=== PATIENT | female | born 1955 | race Caucasian/White ===

== ENCOUNTER 2016-05-10 17:24 | Inpatient (IN) | payer BC ==
--- NOTE | ~2016-05-10 | DS ---
Discharge Summary [facility] [address] [place]. [address] NAME: MIGUELINA GREENFIELD : 57 STATUS : DIS IN PAT#: [id number] AGE: 60 ADM/REG DATE : 05/10/16 MR#: [id number] REPORT SERV DATE: 05/21/16 DICTATED BY: GEGE GUZMAN DATE: 05/20/16 REPORT STATUS : Draft TRANSCRIBED BY: MARAL DATE: 05/20/16 Data Collection from hospitalization DISCHARGE DIAGNOSES: 1. Lbt-VD-ergqqqtpw myocardial infarction. 2. Coronary artery disease, status post coronary artery bypass grafting. 3. Hypercholesterolemia. 4. Mixed connective tissue disease. 5. Gastroesophageal reflux disease. CONSULTATIONS: Jose De Jesus Ramirez M.D. PROCEDURES PERFORMED: 1. Cardiac catheterization on 05/10/2016. 2. Urgent coronary artery bypass grafting x4 with left internal mammary artery to the left anterior descending artery, reverse saphenous vein graft placed to the first diagonal, reverse saphenous vein graft placed to the first obtuse marginal, reverse saphenous vein graft placed to the first obtuse marginal, reverse saphenous vein graft placed to the posterior descending artery; endoscopic vein harvest of the saphenous vein from the left leg; transesophageal echocardiography on 05/11/2016. 3. Carotid blood flow study on 05/10/2016. MEDICATIONS: Vitamin C 1000 mg twice a day, aspirin 81 mg daily, Lipitor 80 mg at bedtime, Plavix 75 mg daily, Pepcid 20 mg daily as needed, leucovorin 25 mg on Tuesdays as instructed, Trexall 15 mg on Mondays as instructed, Lopressor 12.5 mg twice a day, and Procardia XL 30 mg daily. CONDITION AT DISCHARGE: Stable. DISPOSITION: The patient was discharged home on an 1800-calorie low-cholesterol, low-sodium, cardiac/diabetic diet with no concentrated carbohydrates and activities as instructed. She would follow up with Shaun Parra on 06/03/[address] Kaushik Wilkerson on 06/09/2016. She would follow up with her primary care physician as needed. HOSPITAL COURSE: This is a 60-year-old female who has a longstanding history of mixed connective tissue disease. She had a fairly extensive Raynaud phenomenon. She had no prior diagnosed history of coronary disease. She does not report having any EKG performed recently. She had been having exertional chest pain, mid sternal, fairly sharp and severe for several weeks, perhaps even several months. It was fairly reproducible. It had hindered her efforts to reinvigorate her exercise program. She now reports that even walking for about two minutes on the treadmill or doing an elliptical for a similar amount of time that she developed fairly severe midsternal chest discomfort. She had one episode at rest while taking a bath about a week prior to this admission. She had a fairly severe episode on the day of this admission during exercise and was worked in for an urgent office visit. She is not having chest pain in the office at rest. A 12-lead EKG showed sinus rhythm at 83 beats per minute. There were T-wave inversions and mild ST elevations in V1 through V3. There were no Q-waves. There was concern about her accelerating exertional symptoms and concern about her significantly abnormal EKG. She was felt to have had a non- Discharge Summary [address] [place]. [address] NAME: MIGUELINA GREENFIELD : 57 STATUS : DIS IN PAT#: [id number] AGE: 60 ADM/REG DATE : 05/10/16 MR#: [id number] REPORT SERV DATE: 05/21/16 DICTATED BY: GEGE GUZMAN DATE: 05/20/16 REPORT STATUS : Draft TRANSCRIBED BY: MARAL DATE: 05/20/16 ST elevation myocardial infarction. It was felt that she would need to undergo urgent cardiac catheterization. She was admitted to the hospital at this time for further evaluation and treatment. Upon admission, she was taken to the cardiac lab rn where she underwent the above- mentioned procedure. She tolerated this well, and there were no complications. Following this, she was seen by Dr. Jose De Jesus Ramirez. She was found to have left main 75% distal, LAD 95% tandem proximal lesion, 95% mid, and 50% distal as well as RCA functionally occluded at acute margin with gzwd-tt-hxmhb collaterals. There was 25% in the origin of the large OM-1. It was felt that the patient would need to undergo coronary artery bypass grafting. The following day, she was taken to the operating room by Dr. Ramirez where she underwent the above-mentioned procedure. She tolerated this well, and there were no complications. On postop day #1, she had no chest pain or shortness of breath. White count was 9.2. She was on aspirin and Plavix, amiodarone and Lopressor. She had been on nifedipine for Raynaud's as an outpatient. Lipitor was increased. Her lungs were clear. Chest tubes were removed. Toradol was being given as needed for pain. INR level was 1.2. The following day, she was ambulatory. She had no chest pain or shortness of breath. She was in a normal sinus rhythm. Blood pressure and heart rate were okay. She did have a bowel movement. On 05/14/2016, she was feeling better. She was ambulatory. Discharge planning was performed. Due to her improved and stable condition, she was discharged home with the above-stated instructions. Information collected by: Yarelis Lynn I submit the above information as my discharge summary. CLEVE/MARAL Gege Guzman M.D. / [id number] CC: Leo Sorto M.D.
--- NOTE | ~2016-05-10 | OP ---
Record Of Operation [facility] [address] [place]. [address] NAME: MIGUELINA GREENFIELD : 57 STATUS : DIS IN PAT#: [id number] AGE: 60 ADM/REG DATE : 05/10/16 MR#: [id number] REPORT SERV DATE: 05/14/16 DICTATED BY: BARRY RAMIREZ DATE: 05/14/16 REPORT STATUS : Draft TRANSCRIBED BY: MODL DATE: 05/14/16 DATE OF PROCEDURE: 05/11/2016 PREOPERATIVE DIAGNOSES: 1. Coronary artery disease, odk-GM-yobcumpeu myocardial infarction. 2. Mixed connective tissue disorder. 3. Raynaud's disease. 4. Gastroesophageal reflux disease. POSTOPERATIVE DIAGNOSES: 1. Coronary artery disease, xwf-KZ-iuhjyfscm myocardial infarction. 2. Mixed connective tissue disorder. 3. Raynaud's disease. 4. Gastroesophageal reflux disease. PROCEDURE PERFORMED: 1. Urgent coronary artery bypass grafting x4, left internal mammary artery placed to left anterior descending, reverse saphenous vein graft placed to the first diagonal, reverse saphenous vein graft placed to the first obtuse marginal, reverse saphenous vein graft placed to the posterior descending artery. 2. Endoscopic vein harvest of saphenous vein from the left leg. 3. Transesophageal echocardiography. SURGEON: Barry Ramirez M.D. HEALTH INFORMATION SPECIALIST: Aye Cradoza and Zurdo Ortega. ANESTHESIA: General with Dr. Courtney. ICER HAND: Kaushik Wilkerson M.D. INDICATIONS: This is a fairly active, previously healthy 60-year-old female, who has a strong family history of coronary artery disease. She also has an extensive history of Raynaud's disease with mixed connective tissue disorder. She takes methotrexate for this and has gastroesophageal reflex. She had been having exertional type chest discomfort for several days prior to her admission at least for several months. She developed worsening episodes of chest discomfort early on the day of this admission and sought out her child therapist, Kaushik Wilkerson for evaluation. She was not having chest pain at rest. She was seen and an EKG demonstrated T-wave inversion and mild ST elevations at V1 through V3, and she was referred for urgent cardiac catheterization. This demonstrated significant three-vessel coronary artery disease. Ventricular function was preserved, I believe with an ejection fraction greater than 50%. We were asked to see the patient for possible urgent revascularization and discussed this operation with the patient and her . The patient was placed on heparin and stabilized overnight. After lengthy discussion of the operation, its indications, and risks, they wished to proceed. STS predicted mortality of 1.3%, morbidity and mortality less than 10% was shared with the family. Record Of Operation [facility] [address] [place]. [address] NAME: MIGUELINA GREENFIELD : 57 STATUS : DIS IN PAT#: [id number] AGE: 60 ADM/REG DATE : 05/10/16 MR#: [id number] REPORT SERV DATE: 05/14/16 DICTATED BY: BARRY RAMIREZ DATE: 05/14/16 REPORT STATUS : Draft TRANSCRIBED BY: MARAL DATE: 05/14/16 FINDINGS AT OPERATION: 1. Cross-clamp 64 minutes and total pump time 79 minutes. 2. The LAD was a 2 mm moderately diseased vessel. A 2.5 mm MEJIA was anastomosed to it with good runoff. 3. The first diagonal is less than 1.5 mm mildly diseased. A 4 mm RSVG was anastomosed to it with fair runoff. This was a small target. 4. The first obtuse marginal was 1.75 mm and moderately diseased. A 4 mm RSVG was anastomosed to it with good runoff. 5. The posterior descending artery was 1.75 mm and moderately diseased. A 4 mm RSVG was anastomosed to it with good runoff. 6. The vein quality was good and all grafts had good Doppler signal at the end of the case. 7. REYMUNDO demonstrated good ventricular function at the end of the operation with no significant valvular pathology. PATHOLOGIC SPECIMENS: None. DESCRIPTION OF PROCEDURE: The patient was brought to the operating suite where general anesthesia was induced, and the airway secured with an endotracheal tube. Lines were secured by Anesthesia. Diop catheter was placed. The patient's chest, abdomen, groin, and legs were prepped with Hibiclens and ChloraPrep and draped with Ioban and sterile sheets. REYMUNDO probe was placed by Anesthesia and examination carried out with Dr. Courtney in my attendance. This demonstrated good ventricular function. No significant valvular pathology. Because of the patient's left main coronary artery disease and lack of critical lesion in the obtuse marginal that was somewhat small, and the patient has history of Raynaud's phenomenon, it was decided not to proceed with radial arteries or bilateral mammary artery utilization. The saphenous vein was harvested from the left leg using endoscopic technique. Briefly, the vein was cut directly down upon through a 2 cm incision and placed at the medial aspect of the left knee. Then, using VasoView trocars, the vessel was dissected from the surrounding subcutaneous tissue and fat. The side branches were identified, ligated, and divided with cautery. Once adequate length of vein had been dissected, a counter incision was made up in the groin and in the lower leg where the vein was ligated, divided, and brought through the knee incision. The vein quality was good. The leg was made hemostatic and closed in layers with absorbable suture and skin closed in subcuticular fashion. Then, a midline sternal incision made and the sternum was opened with a saw. The left hemithorax was elevated and the endothoracic fascia was incised. The side branch of the VANDANA were clipped and divided. Once the VANDANA was completely dissected, the patient was anticoagulated with heparin and chest tube was placed in the left pleural cavity. The VANDANA was clipped and divided distally. There was good flow through the VANDANA and its pedicle was infiltrated with papaverine. Next, the Sanjay retractor was placed in the pericardium over from the innominate vein. The diaphragm was T'd and tacked to side of the chest wall. Cannulation with pursestring Record Of Operation [facility] [address] [facility] [place]. [address] NAME: MIGUELINA GREENFIELD : 57 STATUS : DIS IN PAT#: [id number] AGE: 60 ADM/REG DATE : 05/10/16 MR#: [id number] REPORT SERV DATE: 05/14/16 DICTATED BY: BARRY RAMIREZ DATE: 05/14/16 REPORT STATUS : Draft TRANSCRIBED BY: MODL DATE: 05/14/16 sutures were placed and cannulation was carried out in routine manner. A retrograde cardioplegia cannula was placed in the coronary sinus. When all was in readiness, the patient was placed on cardiopulmonary bypass. The distal targets were marked out on the heart as described in the findings. Then, a heart support was placed. The aorta was crossclamped and an initial dose of cold blood cardioplegia solution was given in a combination of antegrade and retrograde fashion, then in a retrograde manner following proximal anastomoses. Following the first dose cardioplegia, the heart was positioned for the PDA graft. Arteriotomy was made. The vein graft was trimmed and anastomosed to it with 7-0 Prolene. This vein graft was measured to the right side of the ascending aorta where it was divided. We then positioned the heart for the obtuse marginal graft. An another arteriotomy was made and the vein graft was then anastomosed to this vessel with 7-0 Prolene. This vein graft was then measured back to the left side of the ascending aorta where it was divided. Next, the proximal ends of the two vein grafts were anastomosed to 4.5 mm punch aortotomy with 6-0 Prolene. Another dose of cardioplegia was given and the heart was then positioned for the diagonal graft. Arteriotomy was made in a small vessel. This vein graft was trimmed and anastomosed to it with 7-0 Prolene. The vein graft was measured back to the left side of the ascending aorta where it was divided and anastomosed to a 4.5 mm punch aortotomy with 6- 0 Prolene. We then positioned the heart for the LAD graft. Warming was begun. Arteriotomy was made to the mid LAD. The VANDANA was brought out of the left chest through a notch in the pericardium over the pulmonary artery. The VANDANA was opened and anastomosed to the LAD with running suture of 8-0 Prolene. The endothoracic fascia was tacked to the epicardium. The patient was placed in Trendelenburg and final dose of warm blood cardioplegia was given in a retrograde fashion. Ventricular and atrial pacing wires were placed. Following the last dose cardioplegia and deairing of the aorta, the aortic cross clamp was removed. The distal and proximal anastomoses were inspected and made hemostatic. Doppler demonstrated good flow through the grafts. Ventilations were begun. The heart was paced in an atrial fashion at a rate of 80. When the heart demonstrated good contractility, it was allowed to fill and eject. When deairing was completed, the patient was taken out of Trendelenburg, and the ascending aortic vent was removed, and these pursestring sutures were tied and reinforced. The patient was weaned from cardiopulmonary bypass with a low-dose of inotropic support. The venous cannula was removed and these pursestring sutures were tied. REYMUNDO examination demonstrated good ventricular function with no significant valvular pathology. Protamine was administered by Anesthesia and following a period of hemodynamic stability, the aortic cannula was removed and these pursestring sutures were tied and reinforced. The patient continued do well and chest was irrigated copiously with saline. Meticulous hemostasis was obtained. Hemasorb was placed along the cut edge of the sternum. Once hemostasis was assured, the pericardium was draped over the anterior surface of heart and tacked into position. Doppler demonstrated good flow through the grafts following protamine administration. Then, chest tubes were placed and the sternum was reapproximated with eight Record Of Operation [facility] [address] [place]. [address] NAME: MIGUELINA GREENFIELD : 57 STATUS : DIS IN PAT#: [id number] AGE: 60 ADM/REG DATE : 05/10/16 MR#: [id number] REPORT SERV DATE: 05/14/16 DICTATED BY: BARRY RAMIREZ DATE: 05/14/16 REPORT STATUS : Draft TRANSCRIBED BY: MARAL DATE: 05/14/16 sternal wires. The clavipectoral fascia and linea alba was closed #1 Stratafix as was the subcutaneous tissue. The skin was closed in a subcuticular fashion. At the beginning of the operation, it should be noted that a 4-Luxembourgish femoral arterial blood pressure monitoring catheter was placed using a percutaneous technique in the left femoral artery. Briefly, the needle was placed in the femoral artery and the guidewire was positioned over this. Then, using modified Seldinger technique, 4-Luxembourgish introducer blood pressure monitoring sheath was inserted and secured to the skin. The patient tolerated the procedure well without any complications. Sponge and needle counts were correct. DISPOSITION: The patient was left intubated, sedated, and transported to the intensive care unit stable condition. AURY/MARAL Barry Ramirez M.D. / [id number] CC: Leo Sorto M.D.
--- NOTE | ~2016-05-10 | HP ---
History And Physical [facility] [id number] [place]. [address] NAME: MIGUELINA HARRELL : 57 STATUS : ADM IN [facility]#: [id number] AGE: 60 ADM/REG DATE : 05/10/16 MR#: [id number] REPORT SERV DATE: 05/11/16 DICTATED BY: KAUSHIK VEGA DATE: 05/10/16 REPORT STATUS : Draft TRANSCRIBED BY: MODRosmery DATE: 05/10/16 DATE OF ADMISSION: 05/10/2016 CHIEF COMPLAINT: Chest pain/unstable angina. HISTORY OF PRESENT ILLNESS: This is a 60-year-old woman with a longstanding history of mixed connective tissue disease. She has fairly extensive Raynaud phenomenon. She has no prior diagnosed history of coronary disease. She does not report having an EKG performed recently. She has been having exertional chest pain midsternal, fairly sharp and severe for several weeks, perhaps even several months. This is fairly reproducible. It has hindered her efforts to reinvigorate her exercise program. She now reports that even walking for about 2 minutes on the treadmill or doing an elliptical for a similar amount of time she gets fairly severe midsternal chest discomfort. She had one episode at rest while taking a bath about a week ago. She had a fairly severe episode today during exercise and is worked in for an urgent office visit today. She is not having chest pain at rest in my office. PAST MEDICAL HISTORY: 1. Gastroesophageal reflux disease. 2. Mixed connective tissue disease. SOCIAL HISTORY: She drinks alcohol occasionally. She does not smoke. FAMILY HISTORY: There is a family history of early coronary artery disease with her mother having bypass surgery in her early 60s. REVIEW OF SYSTEMS: A complete review of systems was obtained, which is negative in detail except as mentioned above in the HPI. ALLERGIES: INCLUDE HYDROCHLOROQUINE CAUSING A RASH. CURRENT MEDICATIONS: Include nifedipine extended release 30 mg daily, leucovorin methotrexate, Pepcid. PHYSICAL EXAMINATION: VITAL SIGNS: Blood pressure 122/76, heart rate of 83, respiratory rate of 14. GENERAL: Comfortable in no acute distress. HEENT: Anicteric. No xanthelasma. Lips without cyanosis. NECK: No JVD. Carotids 2+ and symmetric. No carotid bruits. LUNGS: CTA bilaterally. No wheezes or rhonchi. No accessory muscle use. COR: RRR. Normally placed PMI. Normal S1 and S2. No murmurs, rubs or gallops. ABD: Soft, nontender, nondistended. Normal bowel sounds. No abdominal bruits. EXT: No clubbing, cyanosis or edema 2+ and symmetric distal pulses. SKIN: Warm. Dry. No venous stasis changes. History And Physical [address] [address] NAME: MIGUELINA HARRELL : 57 STATUS : ADM IN PAT#: [id number] AGE: 60 ADM/REG DATE : 05/10/16 MR#: [id number] REPORT SERV DATE: 05/11/16 DICTATED BY: KAUSHIK VEGA DATE: 05/10/16 REPORT STATUS : Draft TRANSCRIBED BY: MARAL DATE: 05/10/16 MS: No kyphosis. NEURO/PSYCH: Oriented x3. No anxiety or depression. EK-lead EKG shows sinus rhythm at 83 beats per minute. There are T-wave inversions and mild ST elevations V1 through V3. There are no Q-waves. IMPRESSION: Ms. Harrell is a 60-year-old woman without previously diagnosed coronary disease but with fairly extensive Raynaud phenomenon who presents with a clinical story consistent with unstable angina. I am concerned about her accelerating exertional symptoms and I am also concerned about her significantly abnormal EKG. I have recommended admission to [facility] with plan for urgent cardiac catheterization. I explained the risks and benefits of this procedure to the patient and her over the phone who understand and wish to proceed. DWAYNE/MARAL Kaushik Vega M.D. / [id number]
[2016-05-10 18:29] LABS: BASOPHILS 0.6 %; BASOPHILS ABSOLUTE 0.03 10/3/uL (0.0-0.16); EOSINOPHILS 2.8 %; EOSINOPHILS ABSOLUTE 0.13 10/3/uL (0.0-0.53); HEMATOCRIT 37.7 % (36.0-48.0); HEMOGLOBIN 12.9 g/dL (12.0-16.0); IMMATURE GRANULOCYTES 0.2 %; IMMATURE GRANULOCYTES ABSOLUTE 0.01 10/3/uL (0.0-0.11); LYMPHOCYTES ABSOLUTE 1.57 10/3/uL (0.67-4.30); MANUAL DIFF NO %; MEAN CORPUS HGB CONC 34.2 g/dL (32.0-36.0); MEAN CORPUSCULAR HEMOGLOB 32.3 pg (26.0-34.0); MEAN CORPUSCULAR VOLUME 94.5 fL (80-100); MEAN PLATELET VOLUME 10.1 fL (9.2-13.0); MONOCYTES 13.6 %; MONOCYTES ABSOLUTE 0.63 10/3/uL (0.21-1.20); NEUTROPHILS 48.8 %; NEUTROPHILS ABSOLUTE 2.25 10/3/uL (2.02-8.40); PLATELET COUNT 217 10/3/uL (150-400); RBC DISTRIBUTION WIDTH 14.2 % (12.0-16.0); RED CELL COUNT 3.99 10/6/uL (4.0-5.6); WHITE BLOOD CELLS 4.6 10/3/uL (4.5-10.5)
[2016-05-10 18:33] LABS: CREATININE 0.7 MG/DL (0.55-1.02)
[2016-05-10 18:36] LABS: PARTIAL THROMBO TIME 29.7 SEC (22.5-37.2); PROTIME (NOT ORD) 13.4 SEC (12.0-14.5)
[2016-05-10 18:47] LABS: BUN (BLOOD UREA NITROGEN) 18 MG/DL (6-23); CALCIUM, SERUM 8.8 MG/DL (8.5-10.4); CHEST PAIN PROFILE TAT 0 Hrs 24 Mins; CHLORIDE, SERUM 105 MMOL/L (96-112); CO2 (CARBON DIOXIDE) 25 MMOL/L (24-34); CREATININE 0.75 MG/DL (0.55-1.02); GFR AFRICAN AMERICAN 101 ML/MIN (>=60); GFR NON AFRICAN AMERICAN 87 ML/MIN (>=60); GLUCOSE, SERUM 89 MG/DL (60-99); POTASSIUM, SERUM 3.7 MMOL/L (3.5-5.3); SODIUM, SERUM 140 MMOL/L (135-148)
[2016-05-10 22:28] LABS: PROTIME (NOT ORD) 13.4 SEC (12.0-14.5)
[2016-05-10 22:42] LABS: BASOPHILS 0.8 %; BASOPHILS ABSOLUTE 0.03 10/3/uL (0.0-0.16); EOSINOPHILS 3.9 %; EOSINOPHILS ABSOLUTE 0.14 10/3/uL (0.0-0.53); HEMOGLOBIN 13.1 g/dL (12.0-16.0); LYMPHOCYTES 44.7 %; LYMPHOCYTES ABSOLUTE 1.61 10/3/uL (0.67-4.30); MEAN CORPUS HGB CONC 34.5 g/dL (32.0-36.0); MEAN CORPUSCULAR HEMOGLOB 33.5 pg (26.0-34.0); MEAN CORPUSCULAR VOLUME 97.2 fL (80-100); MONOCYTES 15.8 %; MONOCYTES ABSOLUTE 0.57 10/3/uL (0.21-1.20); NEUTROPHILS 34.8 %; NEUTROPHILS ABSOLUTE 1.25 10/3/uL (2.02-8.40); PLATELET COUNT 214 10/3/uL (150-400); RBC DISTRIBUTION WIDTH 14.1 % (12.0-16.0); RED CELL COUNT 3.91 10/6/uL (4.0-5.6); WHITE BLOOD CELLS 3.6 10/3/uL (4.5-10.5)
[2016-05-10 22:44] LABS: A/G RATIO 1.1 (0.7-1.9); ALBUMIN 3.6 G/DL (3.5-5.0); ALKALINE PHOSPHATASE 76 U/L (45-117); BUN (BLOOD UREA NITROGEN) 17 MG/DL (6-23); CALCIUM, SERUM 8.8 MG/DL (8.5-10.4); CHLORIDE, SERUM 106 MMOL/L (96-112); CO2 (CARBON DIOXIDE) 28 MMOL/L (24-34); CREATININE 0.71 MG/DL (0.55-1.02); GFR AFRICAN AMERICAN 108 ML/MIN (>=60); GFR NON AFRICAN AMERICAN 93 ML/MIN (>=60); GLOBULIN 3.2 G/DL (2.5-4.1); GLUCOSE, SERUM 83 MG/DL (60-99); POTASSIUM, SERUM 3.8 MMOL/L (3.5-5.3); SGOT(AST) 28 U/L (5-40); SGPT(ALT) 31 U/L (5-65); SODIUM, SERUM 141 MMOL/L (135-148); TOTAL BILIRUBIN 0.8 MG/DL (0-1.2); TOTAL PROTEIN 6.8 G/DL (6.0-8.5)
[2016-05-10 22:45] LABS: MANUAL DIFF NO %
[2016-05-10 22:51] LABS: PARTIAL THROMBO TIME 28.7 SEC (22.5-37.2)
[2016-05-11 04:34] LABS: BUN (BLOOD UREA NITROGEN) 18 MG/DL (6-23); CALCIUM, SERUM 8.8 MG/DL (8.5-10.4); CHLORIDE, SERUM 107 MMOL/L (96-112); CO2 (CARBON DIOXIDE) 25 MMOL/L (24-34); CREATININE 0.78 MG/DL (0.55-1.02); GFR AFRICAN AMERICAN 96 ML/MIN (>=60); GFR NON AFRICAN AMERICAN 83 ML/MIN (>=60); GLUCOSE, SERUM 87 MG/DL (60-99); POTASSIUM, SERUM 3.6 MMOL/L (3.5-5.3); SODIUM, SERUM 141 MMOL/L (135-148)
[2016-05-11 04:35] LABS: TROPONIN I 0.17 NG/ML (<0.05)
[2016-05-11] MEDS ORDERED: TREXALL10 MG PO (04:58)
[2016-05-11] MEDS ORDERED: [UNRECOGNIZED DRUG - OTHER] PO (04:59)
[2016-05-11] MEDS ORDERED: NXL3 PO (04:59)
[2016-05-11] MEDS ORDERED: HALF81 (05:02)
[2016-05-11] MEDS ORDERED: PEP20 PO (05:02)
[2016-05-11 05:36] LABS: ASCORBIC ACID (UR NOT ORDER) 40 (NEG); BILIRUBIN, URINE NEGATIVE (NEG); KETONE, URINE NEGATIVE (NEG); LEUKOCYTE ESTERASE(NOT OR TRACE (NEG); WBC (NOT ORDERED) (RFLEX) 4 (0-5)
[2016-05-11 11:16] LABS: BE (BASE EXCESS) -0.2 MEQ/L (0 +/- 2.5); CARBOXYHEMOGLOBIN 0.3 % (0-3); HCO3 (ACTUAL BICARBONATE) 23.9 MEQ/L (23-27); HEMOBLOGIN CONTENT 11.9 G/DL (12-16); INSTRUMENT SERIAL # 11843; METHEMOGLOBIN 0.8 % (0-3); MODE SIMV; O2 CONTENT 17.4 VOL% (18-24); OPERATOR ID 19104; PCO2 (CO2 TENSION) 37 MMHG (35-45); PO2 (O2 TENSION) 390 MMHG (79-93); SAMPLE Arterial; TIDAL VOLUME 500 ML; pH 7.42 (7.37-7.43)
[2016-05-11 11:26] LABS: HEMATOCRIT 32.7 % (36.0-48.0); HEMOGLOBIN 11.1 g/dL (12.0-16.0); PLATELET COUNT 126 10/3/uL (150-400)
[2016-05-11 11:36] LABS: BUN (BLOOD UREA NITROGEN) 17 MG/DL (6-23); CALCIUM, SERUM 9.2 MG/DL (8.5-10.4); CHLORIDE, SERUM 110 MMOL/L (96-112); CO2 (CARBON DIOXIDE) 26 MMOL/L (24-34); CREATININE 0.88 MG/DL (0.55-1.02); GFR AFRICAN AMERICAN 83 ML/MIN (>=60); GFR NON AFRICAN AMERICAN 72 ML/MIN (>=60); POTASSIUM, SERUM 3.5 MMOL/L (3.5-5.3); SODIUM, SERUM 143 MMOL/L (135-148)
[2016-05-11 11:37] LABS: GLUCOSE, SERUM 64 MG/DL (60-99)
[2016-05-11 11:38] LABS: INTERNATIONAL NORMAL RATI 1.4 UNITS (-); PARTIAL THROMBO TIME 31.1 SEC (22.5-37.2); PROTIME (NOT ORD) 16.6 SEC (12.0-14.5)
[2016-05-11 14:26] LABS: BE (BASE EXCESS) -5.7 MEQ/L (0 +/- 2.5); CARBOXYHEMOGLOBIN 0.3 % (0-3); DEVICE NC; HCO3 (ACTUAL BICARBONATE) 20.3 MEQ/L (23-27); HEMOBLOGIN CONTENT 12.1 G/DL (12-16); INSTRUMENT SERIAL # 11843; METHEMOGLOBIN 0.6 % (0-3); O2 CONTENT 16.9 VOL% (18-24); OPERATOR ID 19104; PCO2 (CO2 TENSION) 42 MMHG (35-45); PO2 (O2 TENSION) 172 MMHG (79-93); SAMPLE Arterial
[2016-05-11 16:13] LABS: CARBOXYHEMOGLOBIN 0.3 % (0-3); DEVICE NC; HCO3 (ACTUAL BICARBONATE) 18.4 MEQ/L (23-27); HEMOBLOGIN CONTENT 10.9 G/DL (12-16); INSTRUMENT SERIAL # 11843; METHEMOGLOBIN 0.8 % (0-3); O2 CONTENT 15.4 VOL% (18-24); OPERATOR ID 19104; PCO2 (CO2 TENSION) 33 MMHG (35-45); PO2 (O2 TENSION) 211 MMHG (79-93); SAMPLE Arterial; pH 7.37 (7.37-7.43)
[2016-05-11 16:24] LABS: HEMATOCRIT 30.9 % (36.0-48.0); HEMOGLOBIN 10.2 g/dL (12.0-16.0)
[2016-05-11 16:46] LABS: BUN (BLOOD UREA NITROGEN) 19 MG/DL (6-23); CHLORIDE, SERUM 112 MMOL/L (96-112); CO2 (CARBON DIOXIDE) 23 MMOL/L (24-34); CREATININE 0.84 MG/DL (0.55-1.02); GFR AFRICAN AMERICAN 88 ML/MIN (>=60); GFR NON AFRICAN AMERICAN 76 ML/MIN (>=60); POTASSIUM, SERUM 4.2 MMOL/L (3.5-5.3); SODIUM, SERUM 146 MMOL/L (135-148)
[2016-05-11 16:47] LABS: CALCIUM, SERUM 7.7 MG/DL (8.5-10.4); GLUCOSE, SERUM 97 MG/DL (60-99)
[2016-05-12 03:48] LABS: BASOPHILS 0.1 %; BASOPHILS ABSOLUTE 0.01 10/3/uL (0.0-0.16); EOSINOPHILS 0 %; HEMATOCRIT 29.2 % (36.0-48.0); HEMOGLOBIN 9.7 g/dL (12.0-16.0); IMMATURE GRANULOCYTES 0.2 %; IMMATURE GRANULOCYTES ABSOLUTE 0.02 10/3/uL (0.0-0.11); LYMPHOCYTES 5.5 %; MEAN CORPUS HGB CONC 33.2 g/dL (32.0-36.0); MEAN CORPUSCULAR HEMOGLOB 32.8 pg (26.0-34.0); MEAN CORPUSCULAR VOLUME 98.6 fL (80-100); MEAN PLATELET VOLUME 10.3 fL (9.2-13.0); MONOCYTES 11.7 %; MONOCYTES ABSOLUTE 1.07 10/3/uL (0.21-1.20); NEUTROPHILS 82.5 %; NEUTROPHILS ABSOLUTE 7.55 10/3/uL (2.02-8.40); PLATELET COUNT 126 10/3/uL (150-400); RBC DISTRIBUTION WIDTH 14.3 % (12.0-16.0)
[2016-05-12 03:50] LABS: MANUAL DIFF NO %; RED CELL COUNT 2.96 10/6/uL (4.0-5.6); WHITE BLOOD CELLS 9.2 10/3/uL (4.5-10.5)
[2016-05-12 04:07] LABS: BUN (BLOOD UREA NITROGEN) 21 MG/DL (6-23); CALCIUM, SERUM 7.9 MG/DL (8.5-10.4); CHLORIDE, SERUM 108 MMOL/L (96-112); CO2 (CARBON DIOXIDE) 21 MMOL/L (24-34); CREATININE 0.69 MG/DL (0.55-1.02); GFR AFRICAN AMERICAN 110 ML/MIN (>=60); GFR NON AFRICAN AMERICAN 95 ML/MIN (>=60); GLUCOSE, SERUM 112 MG/DL (60-99); POTASSIUM, SERUM 4.4 MMOL/L (3.5-5.3); SODIUM, SERUM 141 MMOL/L (135-148)
[2016-05-12 04:55] LABS: INTERNATIONAL NORMAL RATI 1.2 UNITS (-)
[2016-05-12 17:49] LABS: HEMATOCRIT 31.4 % (36.0-48.0); HEMOGLOBIN 10.5 g/dL (12.0-16.0)
[2016-05-13 05:37] LABS: BASOPHILS 0.1 %; BASOPHILS ABSOLUTE 0.01 10/3/uL (0.0-0.16); EOSINOPHILS 0 %; HEMOGLOBIN 10.5 g/dL (12.0-16.0); IMMATURE GRANULOCYTES 0.2 %; IMMATURE GRANULOCYTES ABSOLUTE 0.02 10/3/uL (0.0-0.11); LYMPHOCYTES 9.9 %; LYMPHOCYTES ABSOLUTE 1.15 10/3/uL (0.67-4.30); MEAN CORPUS HGB CONC 33.9 g/dL (32.0-36.0); MEAN CORPUSCULAR HEMOGLOB 32.1 pg (26.0-34.0); MEAN PLATELET VOLUME 10.4 fL (9.2-13.0); MONOCYTES 8.2 %; MONOCYTES ABSOLUTE 0.95 10/3/uL (0.21-1.20); NEUTROPHILS 81.6 %; NEUTROPHILS ABSOLUTE 9.48 10/3/uL (2.02-8.40); PLATELET COUNT 155 10/3/uL (150-400); RBC DISTRIBUTION WIDTH 14.3 % (12.0-16.0); RED CELL COUNT 3.27 10/6/uL (4.0-5.6); WHITE BLOOD CELLS 11.6 10/3/uL (4.5-10.5)
[2016-05-13 05:40] LABS: MANUAL DIFF NO %; MEAN CORPUSCULAR VOLUME 94.8 fL (80-100)
[2016-05-13 06:02] LABS: BUN (BLOOD UREA NITROGEN) 15 MG/DL (6-23); CALCIUM, SERUM 8.3 MG/DL (8.5-10.4); CHLORIDE, SERUM 105 MMOL/L (96-112); CO2 (CARBON DIOXIDE) 25 MMOL/L (24-34); CREATININE 0.71 MG/DL (0.55-1.02); GFR AFRICAN AMERICAN 108 ML/MIN (>=60); GFR NON AFRICAN AMERICAN 93 ML/MIN (>=60); GLUCOSE, SERUM 131 MG/DL (60-99); POTASSIUM, SERUM 4.3 MMOL/L (3.5-5.3); SODIUM, SERUM 138 MMOL/L (135-148)
[2016-05-13 14:40] LABS: BASOPHILS 0.1 %; BASOPHILS ABSOLUTE 0.01 10/3/uL (0.0-0.16); EOSINOPHILS 0 %; HEMATOCRIT 32.3 % (36.0-48.0); HEMOGLOBIN 10.7 g/dL (12.0-16.0); IMMATURE GRANULOCYTES 0.2 %; IMMATURE GRANULOCYTES ABSOLUTE 0.03 10/3/uL (0.0-0.11); LYMPHOCYTES 9.5 %; LYMPHOCYTES ABSOLUTE 1.16 10/3/uL (0.67-4.30); MEAN CORPUS HGB CONC 33.1 g/dL (32.0-36.0); MEAN CORPUSCULAR HEMOGLOB 32.3 pg (26.0-34.0); MEAN CORPUSCULAR VOLUME 97.6 fL (80-100); MEAN PLATELET VOLUME 10.5 fL (9.2-13.0); MONOCYTES 11.2 %; MONOCYTES ABSOLUTE 1.37 10/3/uL (0.21-1.20); NEUTROPHILS ABSOLUTE 9.62 10/3/uL (2.02-8.40); PLATELET COUNT 166 10/3/uL (150-400); RBC DISTRIBUTION WIDTH 14.3 % (12.0-16.0); RED CELL COUNT 3.31 10/6/uL (4.0-5.6); WHITE BLOOD CELLS 12.2 10/3/uL (4.5-10.5)
[2016-05-13 14:41] LABS: MANUAL DIFF NO %
[2016-05-14 05:03] LABS: BASOPHILS 0.1 %; BASOPHILS ABSOLUTE 0.01 10/3/uL (0.0-0.16); EOSINOPHILS 0.2 %; EOSINOPHILS ABSOLUTE 0.02 10/3/uL (0.0-0.53); HEMATOCRIT 30.6 % (36.0-48.0); HEMOGLOBIN 10.1 g/dL (12.0-16.0); IMMATURE GRANULOCYTES 0.1 %; IMMATURE GRANULOCYTES ABSOLUTE 0.01 10/3/uL (0.0-0.11); LYMPHOCYTES 18.5 %; LYMPHOCYTES ABSOLUTE 1.64 10/3/uL (0.67-4.30); MANUAL DIFF NO %; MEAN CORPUSCULAR HEMOGLOB 33.1 pg (26.0-34.0); MEAN CORPUSCULAR VOLUME 100.3 fL (80-100); MEAN PLATELET VOLUME 10.6 fL (9.2-13.0); MONOCYTES 11.9 %; MONOCYTES ABSOLUTE 1.06 10/3/uL (0.21-1.20); NEUTROPHILS 69.2 %; NEUTROPHILS ABSOLUTE 6.14 10/3/uL (2.02-8.40); PLATELET COUNT 137 10/3/uL (150-400); RBC DISTRIBUTION WIDTH 14.2 % (12.0-16.0); RED CELL COUNT 3.05 10/6/uL (4.0-5.6); WHITE BLOOD CELLS 8.9 10/3/uL (4.5-10.5)
[2016-05-14 05:08] LABS: ALLENS TEST Pos; BE (BASE EXCESS) 2.7 MEQ/L (0 +/- 2.5); CARBOXYHEMOGLOBIN 0.3 % (0-3); HCO3 (ACTUAL BICARBONATE) 25.9 MEQ/L (23-27); HEMOBLOGIN CONTENT 10.3 G/DL (12-16); INSTRUMENT SERIAL # 35151; METHEMOGLOBIN 0.6 % (0-3); O2 CONTENT 13.7 VOL% (18-24); OPERATOR ID 35190; PCO2 (CO2 TENSION) 35 MMHG (35-45); PO2 (O2 TENSION) 72 MMHG (79-93); SAMPLE Arterial; pH 7.49 (7.37-7.43)
[2016-05-14 05:09] LABS: CALCIUM, SERUM 8.2 MG/DL (8.5-10.4); CHLORIDE, SERUM 108 MMOL/L (96-112); CO2 (CARBON DIOXIDE) 28 MMOL/L (24-34); CREATININE 0.71 MG/DL (0.55-1.02); GFR AFRICAN AMERICAN 108 ML/MIN (>=60); GFR NON AFRICAN AMERICAN 93 ML/MIN (>=60); POTASSIUM, SERUM 3.8 MMOL/L (3.5-5.3); SODIUM, SERUM 143 MMOL/L (135-148)
[2016-05-14 05:15] LABS: BUN (BLOOD UREA NITROGEN) 8 MG/DL (6-23); GLUCOSE, SERUM 104 MG/DL (60-99)
[2016-05-14] MEDS ORDERED: HALF81 PO (08:39)
[2016-05-14] MEDS ORDERED: VITC500 PO (08:39)
[2016-05-14] MEDS ORDERED: LIPITOR80 MG PO (08:40)
[2016-05-14] MEDS ORDERED: PLAVIX PO (08:41)
[2016-05-14] MEDS ORDERED: LOP25 PO (08:41)
[2016-11-22] MEDS ORDERED: KLOR-CON M2020 MEQ PO (17:45)
[2016-11-22] MEDS ORDERED: L20 PO (17:45)
== END 2016-05-14 10:46 | disposition home or self-care (01) | DRG 234 ==
LOC: SSU2 17:24 → CCU 18:53 → CVICU 05-11 09:46 → 5NO 05-12 16:13
PROVIDERS: Internal Medicine Cardiovascular Disease; Thoracic Surgery (Cardiothoracic Vascular Surgery)
PROC: 4A023N7 Measurement of Cardiac Sampling and Pressure, Left Heart, Percutaneous Approach (ICD-10-PCS; principal; 2016-05-10)
PROC: 021209W Bypass Coronary Artery, Three Arteries from Aorta with Autologous Venous Tissue, Open Approach (ICD-10-PCS; 2016-05-10)
PROC: B2151ZZ Fluoroscopy of Left Heart using Low Osmolar Contrast (ICD-10-PCS; 2016-05-10)
PROC: B2111ZZ Fluoroscopy of Multiple Coronary Arteries using Low Osmolar Contrast (ICD-10-PCS; 2016-05-10)
PROC: 02100Z9 Bypass Coronary Artery, One Artery from Left Internal Mammary, Open Approach (ICD-10-PCS; 2016-05-10)
PROC: 06BQ4ZZ Excision of Left Saphenous Vein, Percutaneous Endoscopic Approach (ICD-10-PCS; 2016-05-11)
PROC: 5A1221Z Performance of Cardiac Output, Continuous (ICD-10-PCS; 2016-05-11)
PROC: B246ZZ4 Ultrasonography of Right and Left Heart, Transesophageal (ICD-10-PCS; 2016-05-11)
DX: I21.4 Non-ST elevation (NSTEMI) myocardial infarction (principal); M35.1 Other overlap syndromes; I73.00 Raynaud's syndrome without gangrene; E11.9 Type 2 diabetes mellitus without complications; K21.9 Gastro-esophageal reflux disease without esophagitis; Z82.49 Family history of ischemic heart disease and other diseases of the circulatory system; Z88.8 Allergy status to other drugs, medicaments and biological substances; I25.10 Atherosclerotic heart disease of native coronary artery without angina pectoris
CPT/HCPCS: 36415; 71010; 71020; 80048; 80053; 81001; 82330; 82803; 82805; 82947; 82962; 83036; 83735; 84132; 84295; 84484; 85014; 85018; 85025; 85049; 85347; 85610; 85730; 86850; 86900; 86901; 86920; 87641; 93005; 93312; 93320; 93325; 93458; 93880; 94002; 94660; 94770; 99152; 99153; A9270-GY; C1713; C1760; C1769; C1887; C1894; J0583; J0690; J1644; J1885; J2150; J2250; J2370; J2405; J2440; J2720; J2795; J2930; J3010; J3475; J3480; P9045; P9047; Q9967

== ENCOUNTER 2016-11-24 11:24 | Day surgery (SDC) | payer BC ==
[~2016-11-24] VITALS: Ht 167.6 cm; Wt 56.2 kg
--- NOTE | ~2016-11-24 | EGD ---
EGD REPORT [facility] [address] 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 Procedure: Pre-Anesthesia Assessment: - ASA Grade Assessment: II - A patient with mild systemic disease. After obtaining informed consent, the endoscope was passed under direct vision. Throughout the procedure, the patient's blood pressure, pulse, and oxygen saturations were monitored continuously. The GIF [id number] was introduced through the mouth, and advanced to the third part of duodenum. The upper GI endoscopy was accomplished without difficulty. The patient tolerated the procedure well. Findings: A gaping lower esophageal sphincter was found. A small hiatus hernia was present. LA Grade C (one or more mucosal breaks continuous between tops of 2 or more mucosal folds, less than 75% circumference) esophagitis was found in the lower third of the esophagus. No other significant abnormalities were identified in a careful examination of the esophagus. There is no endoscopic evidence of varices or nodules in the entire esophagus. The entire examined stomach was normal. There is no endoscopic evidence of mucosal abnormalities, ulceration or varices in the entire examined stomach. The examined duodenum was normal. Biopsies were taken with a cold forceps for histology. There is no endoscopic evidence of inflammation, mucosal abnormalities or ulceration in the entire examined duodenum. The cardia and gastric fundus were normal on retroflexion. Impression: - Gaping lower esophageal sphincter. - Hiatus hernia. EGD REPORT [address] [place]. [address] NAME: ZORA HARRELL : 57 STATUS : REG [facility] PAT#: [id number] AGE: 61 ADM/REG DATE : 11/24/16 MR#: [id number] REPORT SERV DATE: 11/24/16 DICTATED BY: DATE: REPORT STATUS : Draft TRANSCRIBED BY: [employer] DATE: 11/24/16 - LA Grade C reflux esophagitis. - Normal stomach. - Normal examined duodenum. Biopsied. Recommendation: - Patient has a contact number available for emergencies. The signs and symptoms of potential delayed complications were discussed with the patient. Return to normal activities tomorrow. Written discharge instructions were provided to the patient. - Return to previous diet. - Discharge patient to home. - Continue present medications. - Await pathology results. - Stop famotidine. Start pantoprazole 40 mg daily. Sent to your pharmacy. Procedure Code(s): --- Professional --- 07627, Esophagogastroduodenoscopy, flexible, transoral; with biopsy, single or multiple Diagnosis Code(s): --- Professional --- K22.8, Other specified diseases of esophagus K44.9, Diaphragmatic hernia without obstruction or gangrene K21.0, Gastro-esophageal reflux disease with esophagitis CPT copyright 2013 [employer]. All rights reserved. The codes documented in this report are preliminary and upon video control engineer review may be revised to meet current compliance requirements. JOSEPH BERMAN MD 11/24/2016 12:33 PM This report has been signed electronically. Number of Addenda: 0 Note Initiated On: 11/24/2016 12:00 PM Scope Withdrawal Time 0 hours 0 minutes 0 seconds [address] [place] [address]
--- NOTE | ~2016-11-24 | EGD ---
EGD REPORT [facility] [address] [id number] NAME: ZORA HARRELL : 57 STATUS : REG [facility]#: [id number] AGE: 61 ADM/REG DATE : 11/24/16 MR#: [id number] REPORT SERV DATE: 11/24/16 DICTATED BY: DATE: REPORT STATUS : Draft TRANSCRIBED BY: [employer] DATE: 11/24/16 [facility] Patient Name: Zora Harrell Date of : 1955 Attending MD: JOSEPH BERMAN MD Procedure Date No Time: 11/24/2016 Procedure: Colonoscopy Indications: Clinically significant diarrhea of unexplained origin Medicines: Monitored Anesthesia Care Complications: No immediate complications. Procedure: Pre-Anesthesia Assessment: - ASA Grade Assessment: II - A patient with mild systemic disease. After I obtained informed consent, the scope was passed under direct vision. Throughout the procedure, the patient's blood pressure, pulse, and oxygen saturations were monitored continuously. The PCF [id number] was introduced through the anus and advanced to the terminal ileum. The colonoscopy was performed without difficulty. The patient tolerated the procedure well. The quality of the bowel preparation was excellent. Findings: The perianal exam was abnormal. Findings include Absent resting tone. Three flat polyps were found at the hepatic flexure. The polyps were diminutive in size. These polyps were removed with a cold biopsy forceps. Resection and retrieval were complete. No other significant abnormalities were identified in a careful examination of the remainder of the colon. There is no endoscopic evidence of diverticula, erythema, mass or ulcerations in the entire colon. Biopsies were taken with a cold forceps from the entire colon for evaluation of microscopic colitis. The terminal ileum appeared normal. No additional abnormalities were found on retroflexion. Impression: - Absent resting tone. found on perianal exam. - Three diminutive polyps at the hepatic flexure. Resected and retrieved. - The examined portion of the ileum was normal. Recommendation: - Patient has a contact number available for emergencies. The signs and symptoms of potential delayed complications were discussed with the patient. Return to normal activities tomorrow. Written discharge instructions were provided to the patient. EGD REPORT [address] [place]. [address] NAME: ZORA HARRELL : [birth year] STATUS : REG [facility]#: [id number] AGE: 61 ADM/REG DATE : 11/24/16 MR#: [id number] REPORT SERV DATE: 11/24/16 DICTATED BY: DATE: REPORT STATUS : Draft TRANSCRIBED BY: [employer] DATE: 11/24/16 - Discharge patient to home. - Continue present medications. - Await pathology results. - Lactose-free diet. - Repeat colonoscopy in 5-10 years for surveillance based on pathology results. - If the pathology report reveals adenomatous tissue, then repeat the colonoscopy for surveillance in 5 years. - If the pathology report reveals no adenomatous tissue, then repeat the colonoscopy for screening purposes in 10 years. - Set up appt. with Dr. Metha to evaluate if candidate for stimulator. Procedure Code(s): --- Professional --- 14162, Colonoscopy, flexible, proximal to splenic flexure; with biopsy, single or multiple Diagnosis Code(s): --- Professional --- D12.3, Benign neoplasm of transverse colon R19.7, Diarrhea, unspecified CPT copyright 2013 [employer]. All rights reserved. 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 JOSEPH BERMAN MD 11/24/2016 12:43 PM This report has been signed electronically. Number of Addenda: 0 Note Initiated On: 11/24/2016 11:52 AM Scope Withdrawal Time 0 hours 15 minutes 25 seconds [address] [id number]
[~2016-11-24 11:24] MED LIST: HALF81; HALF81 PO; KLOR-CON M2020 MEQ PO; L20 PO; LIPITOR80 MG PO; LOP25 PO; NXL3 PO; PEP20 PO; PLAVIX PO; TREXALL10 MG PO; VITC500 PO; [UNRECOGNIZED DRUG - OTHER] PO
== END 2016-11-24 23:59 | disposition home or self-care (01) ==
LOC: DMU 11:24
PROVIDERS: Internal Medicine Gastroenterology
PROC: 0DBE8ZX Excision of Large Intestine, Via Natural or Artificial Opening Endoscopic, Diagnostic (ICD-10-PCS; 2016-11-24)
PROC: 0DB98ZX Excision of Duodenum, Via Natural or Artificial Opening Endoscopic, Diagnostic (ICD-10-PCS; principal; 2016-11-24 13:00)
PROC: 0DBK8ZX Excision of Ascending Colon, Via Natural or Artificial Opening Endoscopic, Diagnostic (ICD-10-PCS; 2016-11-24 13:00)
DX: K21.0 Gastro-esophageal reflux disease with esophagitis (principal); K44.9 Diaphragmatic hernia without obstruction or gangrene; K22.8 Other specified diseases of esophagus; I10 Essential (primary) hypertension; I25.10 Atherosclerotic heart disease of native coronary artery without angina pectoris; E78.00 Pure hypercholesterolemia, unspecified; Z88.8 Allergy status to other drugs, medicaments and biological substances; Z95.1 Presence of aortocoronary bypass graft; Z79.82 Long term (current) use of aspirin; Z79.899 Other long term (current) drug therapy; Z98.890 Other specified postprocedural states
CPT/HCPCS: 88305